=== PATIENT | female | born 1995 | race Caucasian/White ===

== ENCOUNTER 2016-10-21 17:01 | Emergency (ER) | payer SELFPAY ==
[~2016-10-21] VITALS: Ht 162.6 cm; Wt 59.1 kg
[2016-10-21 17:19] VITALS: BP 115/76; PULSE 106; RESP 18; O2SAT 100
--- NOTE | 2016-10-21 18:21 | ED.REPORT ---
HPI-Dental/Mouth Prob Date of Service Oct 21, 2016 ED Provider: Marcus Flowers DO A 21 year old female presents to the ED complaining on dental pain that began 2 days ago. Patient has been unable to tolerate P.O for the past 2 days due to pain with ROM in jaw. Associated symptoms also include redness and swelling to the affected area. Patient has been unable to schedule an appointment with a dentist. Patient denies any current suicidal ideation. Nursing Notes Stated Complaint: DENTAL PAIN Chief Complaint: Dental Nursing Notes Reviewed: Yes Allergies: Coded Allergies: Sulfa (Sulfonamide Antibiotics) (Verified Allergy, Severe, Anaphylaxis, ) General Time Seen by MD: 18:17 Chief Complaint Mouth pain Hx Obtained From: Patient Arrived By: Walk-in Onset Occurred: 2 days ago Symptom Duration: Since onset Quality: Painful Severity: Current: Mild Severity: Maximum: Moderate Associated with: Reports: Can't fully open mouth, Unable to tolerate P.O. Pertinent Negative: Pt denies other symptoms Recent Healthcare: No recent doctor visit, No recent hospitalization Past Medical History Past Medical History Prior ED visit w/+ tox for methamphetamines Previous suicide attempt 2014 Past Surgical History None reported Smoking History Current Every Day Smoker Social History Alcohol Use: "Social" Drug Use: IV drugs, Meth, THC Other Social History: Homeless Ambulatory Status Independent Review of Systems Ears / Nose / Throat: Reports: Mouth pain (Pain when open mouth), Toothache Complete sys rev & neg: except as marked. Psychiatric: Denies: Suicidal ideation Physical Exam Initial Vital Signs Vital Signs (First) Date Time Temp Pulse Resp B/P Pulse Ox O2 Delivery O2 Flow Rate FiO2 10/21/16 17:19 36.9 106 18 115/76 100 Room Air Initial VS: Reviewed Extremities: Vascular intact, Neuro intact, No swelling, No tenderness Skin: Warm, Dry, No cyanosis Neurologic: Alert, Oriented, Nonfocal Psychiatric: Mood/affect normal, Behavior normal, Normal thought content ENT: Atraumatic, Airway patent, Mucous membranes moist Dental / Gums: Positive: Dental caries present (Multiple caries present on upper and lower dentition), Negative: Dental abscess ENT: Buccal cellulitis present Neck: Atraumatic, Supple General/Constitutional: Awake, Alert, No acute distress Head / Eyes: Atraumatic, Normocephalic, PERRL Respiratory / Chest: Atraumatic, No respiratory distress Procedures Dental Nerve Block Time: 19:28 Block Performed by: ED physician Consent / Setup / Site Prep: Consent from patient, Time-out performed, Hand hygiene observed, Stand sterile technique, Sterile drapes applied Local Anesthesia: Lidocaine 1%, 27g needle Post-Procedure / Complications: No complications, Condition improved, Tolerated procedure well, Patient stable, No bleeding Re-Eval/Medical Decision Med Decision/Clinical Course Andreina has an infected tooth that looks at least moderately painful. I think this warrants a course of opiates. I discussed with her her prior drug abuse and suicidality. She states she is much better place. She states she is no longer abusing drugs and she has not been depressed or suicidal for many months. She is very comfortable with a short course of opiates for the pain. Re-Evaluation/Progress : Time of Eval: 19:28 Patient Status: Condition improved Re-Evaluation/Progress Note: Patient is rechecked. Dental Block is performed. Patient tolerates the procedure well. Her pain has improved and she agrees with the plan to follow up with a dentist. All questions are addressed. Counseled Regarding: Diagnosis, Need for follow-up, When/why to return to ED Discharge & Departure Primary Impression: Dental caries Additional Impression: Cellulitis of buccal space of mouth Disposition: Home Discharge Condition All VS Reviewed: Yes Condition: Improved Patient Instructions: Dental Caries (ED) Additional Instructions: Thank you for trusting us with your care this evening. Your examination is reassuring that there is no dangerous cause for concern at this time and your pain is likely due to dental caries. I highly recommend you schedule an appointment with a dentist in the next week. You may want to look into dental school (see referral) Please take Augmentin twice daily to completion. Take 1-2 [place] every 6 hours as needed for pain. This medication is a narcotic and may cause drowsiness. Please do not drink, drive or use acetaminophen while on this medication. This is a habit forming medication so please use sparingly. Please return to the ED if you begin to experience any new or worsening symptoms including any high fever, chills, pustule drainage, increased pain or swelling. Referrals: Peter Ramírez ([place]) Nereida (PCP) Dental School Scribe Attestation Portions of this note were transcribed by Eloy Williamson. I, Dr. Flowers personally performed the history, physical exam and medical decision-making; I reviewed and confirmed the accuracy of the information in the transcribed note. Signed by: Hermelinda Valenzuela, 10/21/161946. copies to: Peter Ramírez ([place]) Marcus Galindo DO Oct 21, 2016 18:20 ELOY WILLIAMSON Oct 21, 2016 18:43
[2016-10-21] MEDS ORDERED: HYDROcodone-APAP 5-325 mg Tablet PO ONE (18:45)
[2016-10-21] MEDS ORDERED: Amoxicillin-Clav 875-125 mg Tablet PO ONE (18:45)
[2016-10-21] MEDS ORDERED: Lidocaine 2% 50 mL Inj NERVEBLOCK ONE (18:45)
[2016-10-21] MEDS ORDERED: _Amoxicillin-Clavulanate 875-125 mg Tablet PO SCH (21:35)
[2016-10-21] MEDS ORDERED: _oxyCODONE/APAP 5-325 mg Tablet PO PRN (21:35)
== END 2016-10-21 19:47 | disposition home or self-care (01) ==
LOC: SED 17:01
DX: K02.9 Dental caries, unspecified (principal); K12.2 Cellulitis and abscess of mouth; F17.200 Nicotine dependence, unspecified, uncomplicated; Z59.0 Homelessness; Z88.2 Allergy status to sulfonamides